=== PATIENT | female | born 1980 | race Caucasian/White ===

== ENCOUNTER → 2019-07-29 | Outpatient (REF) | payer OTHER, MEDICAID ==
[2019-07-29 18:10] LABS: BASO # 0.1 10^3/uL (0.0-0.2); BASO % 0.6 % (0.0-1.0); EOS # 0.1 10^3/uL (0.0-0.5); HEMATOCRIT 39.5 % (36.0-47.0); HEMOGLOBIN 11.8 g/dl (12.0-15.5); LYMPH # 3.7 10^3/uL (1.5-5.0); MEAN CORPUSCULAR HEMOGLOBIN 24.2 pg (27.0-33.0); MEAN CORPUSCULAR HGB CONC 29.9 g/dl (32.0-36.5); MEAN CORPUSCULAR VOLUME 80.9 fl (80.0-96.0); MONO # 0.7 10^3/uL (0.0-0.8); MONO % 6.9 % (0.0-5.0); NEUTROPHILS # 5.3 10^3/uL (1.5-8.5); NEUTROPHILS % 53.9 % (36.0-66.0); PLATELET COUNT, AUTOMATED 545 10^3/uL (150-450); RED BLOOD COUNT 4.88 10^6/uL (4.00-5.40); WHITE BLOOD COUNT 9.9 10^3/uL (4.0-10.0)
[2019-07-29 18:20] LABS: ALBUMIN 3.7 GM/DL (3.2-5.2); ALT/SGPT 25 U/L (12-78); BILIRUBIN,TOTAL 0.3 MG/DL (0.2-1.0); BLOOD UREA NITROGEN 8 MG/DL (7-18); CARBON DIOXIDE LEVEL 27 MEQ/L (21-32); CHLORIDE LEVEL 106 MEQ/L (98-107); CHOLESTEROL LEVEL 281 MG/DL (<200); CHOLESTEROL RISK RATIO 6.534 (<5); CREATININE FOR GFR 0.83 MG/DL (0.55-1.30); FREE T4 0.92 NG/DL (0.76-1.46); GLOMERULAR FILTRATION RATE > 60.0 (>60); GLUCOSE, FASTING 76 MG/DL (70-100); HDL CHOLESTEROL 43 MG/DL (>40); LDL CHOLESTEROL 205 MG/DL (<100); NON-HDL-C 238 MG/DL; POTASSIUM SERUM 4.9 MEQ/L (3.5-5.1); SODIUM LEVEL 137 MEQ/L (136-145); TOTAL PROTEIN 7.7 GM/DL (6.4-8.2); TRIGLYCERIDES LEVEL 163 MG/DL (<150)
[2019-07-29 18:22] LABS: TOTAL 25(OH) VITAMIN D 15.3 NG/ML (30.0-100.0)
== END ==
LOC: M LAB REF 17:25
PROVIDERS: ATTEND Nurse Practitioner Family
DX: Z13.9 Encounter for screening, unspecified (principal); F34.1 Dysthymic disorder; F17.210 Nicotine dependence, cigarettes, uncomplicated; F41.8 Other specified anxiety disorders; E55.9 Vitamin D deficiency, unspecified; J06.9 Acute upper respiratory infection, unspecified

== ENCOUNTER → 2019-11-03 | Outpatient (CLI) | payer MEDICAID, OTHER ==
[2019-11-03 12:42] LABS: HEMATOCRIT 35.8 % (36.0-47.0); HEMOGLOBIN 10.6 g/dl (12.0-15.5); MEAN CORPUSCULAR HEMOGLOBIN 22.9 pg (27.0-33.0); MEAN CORPUSCULAR HGB CONC 29.6 g/dl (32.0-36.5); MEAN CORPUSCULAR VOLUME 77.5 fl (80.0-96.0); PLATELET COUNT, AUTOMATED 438 10^3/uL (150-450); RED BLOOD COUNT 4.62 10^6/uL (4.00-5.40); WHITE BLOOD COUNT 11.2 10^3/uL (4.0-10.0)
[2019-11-03 13:30] LABS: ALBUMIN 3.6 GM/DL (3.2-5.2); ALT/SGPT 18 U/L (12-78); AMYLASE 57 U/L (25-115); BILIRUBIN,TOTAL 0.2 MG/DL (0.2-1.0); BLOOD UREA NITROGEN 9 MG/DL (7-18); CALCIUM LEVEL 9.3 MG/DL (8.5-10.1); CARBON DIOXIDE LEVEL 23 MEQ/L (21-32); CHLORIDE LEVEL 108 MEQ/L (98-107); CREATININE FOR GFR 0.72 MG/DL (0.55-1.30); GLOMERULAR FILTRATION RATE > 60.0 (>60); GLUCOSE, FASTING 81 MG/DL (70-100); LIPASE 128 U/L (73-393); POTASSIUM SERUM 4.6 MEQ/L (3.5-5.1); SODIUM LEVEL 137 MEQ/L (136-145); TOTAL PROTEIN 7.4 GM/DL (6.4-8.2)
[2019-11-05 12:01] LABS: IRON (FE) 20 UG/DL (50-170); PERCENT SATURATION 4.2 % (13.2-45.0); TOTAL IRON BINDING CAPACITY 472 UG/DL (250-450)
== END ==
LOC: M LAB 11:45
PROVIDERS: ATTEND Physician Assistant Medical
DX: R10.13 Epigastric pain (principal); R19.7 Diarrhea, unspecified

== ENCOUNTER → 2019-11-04 | Outpatient (REF) | payer MEDICAID | LOC: M LAB REF 13:52 | PROVIDERS: ATTEND Physician Assistant Medical | DX: R19.7 Diarrhea, unspecified (principal) ==

== ENCOUNTER 2020-04-24 02:47 | Emergency (ER) | payer MEDICAID ==
[~2020-04-24] VITALS: Ht 154.9 cm; Wt 89.2 kg
[2020-04-24] MEDS ORDERED: ATOR40TA75 PO (02:59)
[2020-04-24] MEDS ORDERED: FERR325T82 PO (02:59)
[2020-04-24] MEDS ORDERED: FAMO20TA PO (02:59)
[2020-04-24] MEDS ORDERED: VITA500045 PO (02:59)
[2020-04-24] MEDS ORDERED: ZOLO100T PO (02:59)
[2020-04-24] MEDS ORDERED: NEXI20CA PO (02:59)
[2020-04-24] MEDS ORDERED: BENA25CA4 PO (03:05)
[2020-04-24] MEDS ORDERED: AMOX875T PO (03:06)
[2020-04-24] MEDS ORDERED: predniSONE 20 MG TAB PO ONE (04:00)
[2020-04-24] MEDS ORDERED: CLEO300C2 PO (04:03)
[2020-04-24] MEDS ORDERED: PRED20TA PO (04:03)
[2020-04-24 04:30] VITALS: BP 134/80
== END 2020-04-24 04:43 | disposition home or self-care (01) ==
LOC: M ED 02:47
DX: T78.40XA Allergy, unspecified, initial encounter (principal); K08.89 Other specified disorders of teeth and supporting structures; K21.9 Gastro-esophageal reflux disease without esophagitis; Z88.1 Allergy status to other antibiotic agents; Z79.899 Other long term (current) drug therapy

== ENCOUNTER 2021-06-02 12:59 | Emergency (ER) | payer OTHER ==
[~2021-06-02] VITALS: Ht 154.9 cm; Wt 88.2 kg
[~2021-06-02 12:59] MED LIST: AMOX875T PO; ATOR40TA75 PO; BENA25CA4 PO; CLEO300C2 PO; FAMO20TA PO; FERR325T82 PO; NEXI20CA PO; PRED20TA PO; VITA500045 PO; ZOLO100T PO
[2021-06-02 13:03] VITALS: BP 140/100
[2021-06-02] MEDS ORDERED: FLUTISP (13:50)
[2021-06-02] MEDS ORDERED: HYDR50TA70 (13:50)
== END 2021-06-02 14:09 | disposition left against medical advice (07) ==
LOC: M ED 12:59
DX: Z53.29 Procedure and treatment not carried out because of patient's decision for other reasons (principal)

== ENCOUNTER → 2022-02-24 | Outpatient (REF) | payer OTHER ==
[~2022-02-24] MED LIST changes: +FLUTISP; +HYDR50TA70
[2022-02-24 17:50] LABS: BLOOD UREA NITROGEN 7 MG/DL (7-18); CALCIUM LEVEL 8.9 MG/DL (8.5-10.1); CARBON DIOXIDE LEVEL 26 MEQ/L (21-32); CHLORIDE LEVEL 107 MEQ/L (98-107); CREATININE FOR GFR 0.85 MG/DL (0.55-1.30); GLOMERULAR FILTRATION RATE > 60.0 (>58); GLUCOSE, FASTING 94 MG/DL (70-100); SODIUM LEVEL 140 MEQ/L (136-145)
[2022-02-24 17:51] LABS: ALBUMIN 3.5 GM/DL (3.2-5.2); ALT/SGPT 22 U/L (12-78); BILIRUBIN,TOTAL 0.3 MG/DL (0.2-1.0); CHOLESTEROL LEVEL 177 MG/DL (<200); CHOLESTEROL RISK RATIO 6.103 (<5); HDL CHOLESTEROL 29 MG/DL (>40); NON-HDL-C 148 MG/DL; TOTAL PROTEIN 7.3 GM/DL (6.4-8.2); TRIGLYCERIDES LEVEL 431 MG/DL (<150)
== END ==
LOC: M LAB REF 16:53
PROVIDERS: ATTEND Pediatrics
DX: E78.5 Hyperlipidemia, unspecified (principal)

== ENCOUNTER → 2023-09-19 | Outpatient (REF) | payer OTHER ==
[2023-09-19 17:46] LABS: ALBUMIN 3.5 G/DL (3.2-5.2); ALKALINE PHOSPHATASE 105 U/L (46-116); ALT/SGPT 20 U/L (7.0-40); AST/SGOT 13 U/L (<34); BILIRUBIN,TOTAL 0.3 MG/DL (0.3-1.2); BLOOD UREA NITROGEN 8 MG/DL (9-23); CALCIUM LEVEL 9.1 MG/DL (8.5-10.1); CARBON DIOXIDE LEVEL 24 MMOL/L (20-31); CHLORIDE LEVEL 106 MMOL/L (98-107); CHOLESTEROL LEVEL 236 MG/DL (<200); CHOLESTEROL RISK RATIO 6.86 (<5); CPK CREATINE PHOSPHOKINASE 79 U/L (34-145); GLOMERULAR FILTRATION RATE > 60.0 (>58); GLUCOSE, FASTING 83 MG/DL (60-100); HDL CHOLESTEROL 34.4 MG/DL (>40); NON-HDL-C 201.6 MG/DL; POTASSIUM SERUM 4.2 MMOL/L (3.5-5.1); SODIUM LEVEL 137 MMOL/L (136-145); TOTAL PROTEIN 7.1 G/DL (5.7-8.2); TRIGLYCERIDES LEVEL 298 MG/DL (<150)
[2023-09-19 17:48] LABS: THYROID STIMULATING HORMONE 1.399 uIU/ML (0.55-4.78)
== END ==
LOC: M LAB REF 16:46
PROVIDERS: ATTEND Pediatrics
DX: E78.5 Hyperlipidemia, unspecified (principal); M79.10 Myalgia, unspecified site; I47.9 Paroxysmal tachycardia, unspecified

== ENCOUNTER → 2023-10-03 | Outpatient (CLI) | payer OTHER ==
[2023-10-03 16:58] LABS: COMPLEMENT C3 148.7 MG/DL (90.0-170.0); COMPLEMENT C4 30.8 MG/DL (12-36); RHEUMATOID FACTOR QUANT 8.7 IU/ML (<14)
[2023-10-04 17:11] LABS: CRYOGLOBULINS NEGATIVE (NEGATIVE)
== END ==
LOC: M LAB 16:07
PROVIDERS: ATTEND Pediatrics
DX: I74.9 Embolism and thrombosis of unspecified artery (principal)

== ENCOUNTER → 2023-10-10 | Outpatient (CLI) | payer OTHER | LOC: M LAB 11:07 | PROVIDERS: ATTEND Pediatrics | DX: I74.9 Embolism and thrombosis of unspecified artery (principal) ==

== ENCOUNTER → 2023-11-06 | Outpatient (CLI) | payer OTHER | LOC: M SOG 07:54 | PROVIDERS: ATTEND Orthopaedic Surgery | DX: M54.2 Cervicalgia (principal) ==

== ENCOUNTER → 2023-12-05 | Outpatient (CLI) | payer OTHER | LOC: M RAD 13:12 | PROVIDERS: ATTEND Pediatrics | DX: I99.8 Other disorder of circulatory system (principal) ==

== ENCOUNTER → 2023-12-05 | Outpatient (CLI) | payer OTHER | LOC: M PLAIMG 11:16 | PROVIDERS: ATTEND Orthopaedic Surgery | DX: R20.2 Paresthesia of skin (principal) ==